=== PATIENT | female | born 1975 | race Caucasian/White ===

== ENCOUNTER 2016-11-12 09:01 | Emergency (ER) | END 2016-11-12 11:30 | disposition home or self-care (01) | DX: S69.92XA Unspecified injury of left wrist, hand and finger(s), initial encounter (principal); F17.210 Nicotine dependence, cigarettes, uncomplicated; W01.0XXA Fall on same level from slipping, tripping and stumbling without subsequent striking against object, initial encounter; Y92.9 Unspecified place or not applicable | CPT/HCPCS: 29125; 73030; 73110; 73130; J1885 ==

== ENCOUNTER 2018-03-01 03:34 | Emergency (ER) | END 2018-03-01 04:45 | disposition home or self-care (01) ==

== ENCOUNTER 2018-09-05 10:54 | Emergency (ER) | END 2018-09-05 11:46 | disposition home or self-care (01) ==

== ENCOUNTER 2018-11-11 23:11 | Emergency (ER) | payer SELFPAY ==
[~2018-11-11 23:11] MED LIST: ACET1TAB40 PO; ACET500C5 PO; HYDR-4011 PO; IBUP-1542 PO; IBUP800T48 PO; PRED20TA PO; TRAM50TA2 PO
== END 2018-11-11 23:46 | disposition left against medical advice (07) ==
LOC: E/R 23:11
DX: Z53.21 Procedure and treatment not carried out due to patient leaving prior to being seen by health care provider (principal)